=== PATIENT | female | born 1995 | race American Indian/Alaskan Native ===

== ENCOUNTER 2017-08-03 17:22 | Inpatient (IN) | payer MEDICAID ==
[2017-08-03 17:30] VITALS: BMI 35.4
[2017-08-03] MEDS: Lactated Ringer's 1,000 ML IV SCH (17:30)
[2017-08-03 18:46] LABS: BASO # 0.1 K/uL (0.0-0.2); BASO % 0.5 % (0.0-2.0); EOS % 0.2 % (0.0-4.0); HEMATOCRIT 43.7 % (34.0-47.0); LYMPH # 1.8 K/uL (1.0-4.3); LYMPH % 15.6 % (20.0-40.0); MEAN CELL VOLUME 86.7 fl (81.0-99.0); MEAN CORPUSCULAR HEMOGLOBIN 28.1 pg (27.0-31.0); MEAN CORPUSCULAR HGB CONC 32.4 g/dL (33.0-37.0); MEAN PLATELET VOLUME 11.4 fl (7.2-11.7); MONO # 0.4 K/uL (0.0-0.8); MONO % 3.7 % (0.0-10.0); NRBC % 0.2 % (0.0-0.0); RED CELL DISTRIBUTION WIDTH 14.8 % (11.5-14.5); WHITE BLOOD COUNT 11.3 K/uL (4.8-10.8)
[2017-08-03] MEDS ORDERED: Penicillin G 5 Million Unit Vial IVPB ONE (20:00)
--- NOTE | 2017-08-03 20:24 | US ---
EXAM: US Uterus, Limited EXAM DATE/TIME: 08/03/2017 7:25 PM CLINICAL HISTORY: 22 years old, female; Pain; complicated by abdominal or pelvic pain; Periumbilical; Third trimester; Gestational age or lmp: Lmp 12.09.2016; ; Additional info: Dating and placenta location TECHNIQUE: Real-time ultrasound of the maternal uterus (limited) with image documentation. COMPARISON: No relevant prior studies available. FINDINGS: Single fetus identified, cephalic and position. Calculated sonographic gestational age is 36 weeks, 0 days. Estimated delivery date is 08/31/2017. Estimated weight is 6 pounds, 5 ounces. heart motion visualized, at 133 beats/min. Limited assessment of the anatomy on this exam. No obvious anomalies are detected. Fundal location of the placenta. No evidence of placental abruption. No evidence of placenta previa. PABLITO is 6.4 cm. This is below the 2.5th percentile (6.8 cm) for the calculated gestational age. Cervical length is 3.4 cm (normal greater than 3 cm), measured via the translabial approach. IMPRESSION: 36 week, 0 day intrauterine with heart motion. Decreased PABLITO, 6.4 cm, and cannot rule out oligohydramnios. See above for remaining findings.
[2017-08-04] MEDS ORDERED: Nalbuphine 20 mg/ml Inj (1 ml) IVP ONE (01:40)
[2017-08-04] MEDS: Lactated Ringer's 1,000 ML IV SCH ×10 (03:59→22:51)
[2017-08-04] MEDS ORDERED: Betamethasone Soluspan 30 mg/5mL Inj Susp IM ONE (04:00)
--- NOTE | 2017-08-04 04:18 | OBADHP ---
Datetime: 08/03/2017 17:33 Admit Comment, IP Provider: CC: ctx HPI: 22 yo IUP 34 weeks by LMP 12/08/16 as per pt, transferred from [facility] in EARLY labor, c/o ctx since this morning irregular every 6-10 min. -lof,vb,+fm. PNC: [facility], medical records requested. PObH: PGyn: none PMH: none PSH:none Allergies: NKDA, other: shellfish(anaphylaxis) Meds: pnv SH: -tobacco,etoh, drugs. O VSS GEN: nad CVS: +s1 s2 Lungs: clear to auscultation Abd gravid Cervix: 3/50/-1 monitoring: FHR 130/moderate variability/category 1/15 x 15/no decel Bedside u/s vertex presentation. A/P: 22 yo IUP 34 weeks by LMP 12/08/16 as per pt, transferred from [facility] in activ e labor. Admit to unit. NPO cbc, type and screen,rpr,hiv,rubella Ab,HBsAg, urine culture Monitor labor progress monitoring Discussion about labor, delivery and pain management. US limited [place] 12 mg once 4:00 am( 1st dose given at 4:00pm today) Penicillin 2.5 millions units q4 No tocolytics, discussed with Dr Nelly Hayes PGY 1 OB Hospitalist note: This pt was seen and examined by me. Agree with above note. SANDEEP major I spoek wtih Dr Berg about transfer. Steroid and antibiotic given. Dr Villegas was con sulted and agreed with management. If labor progresses then will deliver. Level [address] Oumar ya notified [facility] was called to obtain records. Spoke with Dr Nori Stern. Unable to obtain reports until saturday during business hours Pelvic Type - PN: Adequate Extremities - PN: Normal Abdomen - PN: Normal Back - PN: Normal Breast - PN: Not Done Lungs - PN: Normal Heart - PN: Normal Thyroid - PN: Normal Neurologic - PN: Normal HEENT - PN: Normal General - PN: Normal Presentation-Admit: Vertex FHR - Baseline A Provider: 130 Membranes, Provider: Intact Contraction Comments Provider: occ Comments, ACOG Physical Exam: ROS: General: no weakness; no fatigue HEENT: no THIBODEAUX; no visual dist CV: no palpitations; no no CP GI: no N/V no diarhea : no F/U/D MS: No joint pain Pool Provider: Negative Vital Signs Provider: Reviewed IP Chief Complaint: Uterine contractions NICHD Variability Prov Fetus A: Moderate 6-25bpm NICHD Accel Fetus A IP Provider: 15X15 FHR Category Provider Fetus A: Category I NICHD Decel Fetus A IP Provider: None Dilatation, Provider: 3 Effacement, Provider: 80 Station, Provider: -2 Genitourinary Exam: Normal DTRs - PN: Normal EGA AdmitDate IP: 34.0 IP Adm Impression: , intrauterine ; Intact Membranes IP Admit Plan: Admit to unit; Initiate labor protocol
[2017-08-04] MEDS ORDERED: Lidocaine 1% Inj (20ml) ONE (05:25)
[2017-08-04] MEDS ORDERED: Fentanyl/Bupivacaine HCl 250 ML EPI ONE (06:22)
[2017-08-04] MEDS ORDERED: Bupivacaine HCl 0.25% PF (10 ml) Inj ONE (06:23)
[2017-08-04] MEDS ORDERED: Sodium Chloride 0.9% 1,000 ML IV SCH (07:45)
--- NOTE | 2017-08-04 08:06 | OBPN ---
Datetime: 08/04/2017 07:30 IP Progress Impression: Normal progression of labor; Reassuring heart rate; Rupture of membran es IP Informed Consent Obtain: Vaginal Delivery; Risks, Benefits and Alternatives Discussed IP Procedures: Intrauterine Pressure Catheter; Amnio Infusion IP Progress Plan: Continue present management; Augmentation Pool Provider: Positive Membranes, Provider: Ruptured Amniotic Fluid Color, Provider: Clear FHR - Baseline A Provider: 150 Presentation-Admit: Vertex IP Progress Note Comment: Last night, she had CTX pain and was given IV Nubain. She felt good after wards and was able to rest. She had SROM at 4:30am. She had increasing CTX pain and rec'd epidural this morning. She feels better A: IUp at 34w SROM in labor one prolonged variable decel noted - will given amnioinfusion/IUPC PLAN: with FHR tracing re-assuring will startPitocin augmentation. Level 2 and Rib Builder service notified NICHD Accel Fetus A IP Provider: [id number] FHR Category Provider Fetus A: Category II NICHD Variability Prov Fetus A: Moderate 6-25bpm Dilatation, Provider: 5 Effacement, Provider: 90 Station, Provider: -1 NICHD Decel Fetus A IP Provider: Prolonged Datetime: 08/03/2017 17:33 Contraction Comments Provider: occ Vital Signs Provider: Reviewed
[2017-08-04] MEDS ORDERED: ceFAZolin 2 GM in Sodium Chloride 0.9% 100 ML IVPB ONE (14:55)
[2017-08-04] MEDS ORDERED: Lidocaine 2% PF (10 ml) Amp ONE (15:01)
--- NOTE | 2017-08-04 15:04 | OBPN ---
Datetime: 08/04/2017 14:59 IP Progress Impression: Arrest of dilatation/descent; Reassuring heart rate IP Informed Consent Obtain: Section Delivery; Risks, Benefits and Alternatives Discussed IP Progress Plan: Deliver- Section Contraction Comments Provider: q2-3min FHR - Baseline A Provider: 120s-130s IP Progress Note Comment: Pt fully dilated for >3hours with no progress. Pt states that she 'cannot push anymore.' Discussed options with patient and patient opting for C/S delivery. Discussed the R/ B/A of surgery with patient and all patient questions answered. Pt consented for C/S due to maternal exhaustion and arrest of descent. Anesthesia notified. Vital Signs Provider: Reviewed; Within Normal Limits NICHD Accel Fetus A IP Provider: 15X15 FHR Category Provider Fetus A: Category I NICHD Variability Prov Fetus A: Moderate 6-25bpm Dilatation, Provider: 10 Effacement, Provider: 100 Station, Provider: 0 NICHD Decel Fetus A IP Provider: None
[2017-08-04] MEDS ORDERED: Morphine 5 mg/10 ml preservative-free Inj(Duramorph) ONE (15:28)
[2017-08-04] MEDS ORDERED: Oxycodone/Acetaminophen 5/325 mg Tab PO PRN ×4 (16:07→18:07)
[2017-08-04] MEDS ORDERED: DiphenhydrAMINE 50 mg/ml Inj IVP PRN ×2 (16:30→18:07)
[2017-08-04] MEDS ORDERED: Influenza Vaccine 18yr & older 0.5 ML/45 MCG SYR IM ONE (17:17)
--- NOTE | 2017-08-04 21:18 | OBDS ---
DELIVERY PERSONNEL Delivery Doctor: Kadi Tobin MD Scrub Nurse: Kassi Macias OBT Milk Bottler: Marielena Perez RN Anesthesiologist: Zana Cordova MD Resident: Dr. Brody MATERNAL INFORMATION Delivery Anesthesia: Epidural Medications in Delivery: Pitocin 30 units Estimated Blood Loss (ml): 1000 Placenta Cultured: Yes Maternal Complications: None Provider Comments: Primary low flap transverse section. Viable infant with Apgars of 5 and 8 at one and 5 minutes respectively. Normal uterus, normal tube s and ovaries bilaterally. Estimated blood loss 1000 mL Fluids 1100 mL lactated Ringer's Urine output 300 mL of clear urine No complications Patient tolerated procedure well LABOR SUMMARY EDC: 09/14/2017 00:00 No. Babies in Womb: 0 Attempted: No Labor Anesthesia: Epidural LABOR INFORMATION Reason for Induction: Not Applicable Complete Dilatation: 08/04/2017 11:25 Oxytocin: Augmentation Group B Beta Strep: Not Done Antibiotics # of Doses: 5 Antibiotics Time of Last Dose: 1200 Steroids Given: Full Course; < 24 Hours before Delivery MEMBRANES Membranes Rupture Method: Spontaneous Rupture of Membranes: 08/04/2017 04:35 Length of Rupture (hrs): 10.90 Amniotic Fluid Color: Clear Amniotic Fluid Amount: Large Amniotic Fluid Odor: None STAGES OF LABOR Stage 2 hrs: 4 Stage 2 min: 4 Stage 3 hrs: 0 Stage 3 min: 1 CSECTION DELIVERY Primary Indication: Other Other Primary Indication: maternal exhaustion Secondary Indication: Failure of Descent CSection Urgency: Elective CSection Incidence: Primary Labor: Labor Elective: Elective CSection Incision: Lower Uterine Transverse BABY A INFORMATION Infant Delivery Date/Time: 08/04/2017 15:29 Method of Delivery: Born in Route : No : N/A Forceps: N/A Vacuum Extraction: N/A Shoulder Dystocia : No SHOULDER DYSTOCIA BABY A Delivery Date/Time: 08/04/2017 15:29 PRESENTATION/POSITION BABY A Presentation: Cephalic Cephalic Presentation: Vertex Breech Presentation: N/A PLACENTA INFORMATION BABY A Placenta Delivery Time : 08/04/2017 15:30 Placenta Method of Delivery: Spontaneous Placenta Status: Delivered SCORES BABY A Heart Rate 1 min: Slow, Below 100 bpm Resp Effort 1 min: Slow, Irregular Reflex Irritability 1 min: Grimace Muscle Tone 1 min: Some Flexion of Extremities Color 1 min: Body [place], Extremities Blue SCORE 1 MIN: 5 Heart Rate 5 min: >100 bpm Resp Effort 5 min: Good Cry Reflex Irritability 5 min: Cough or Sneeze or Pulls Away Muscle Tone 5 min: Some Flexion of Extremities Color 5 min: Body [place], Extremities Blue SCORE 5 MIN: 8 INFORMATION BABY A Gestational Age at Delivery: 34.0 Gestational Status: Outcome : Liveborn Infant Condition : Stable Infant Sex: Male IDENTIFICATION/MEDS BABY A ID Band Number: [id number] ID Band Location: Left Leg; Left Arm WEIGHT/LENGTH BABY A Birthweight (gms): 2925 Infant Weight (lb): 6 Infant Weight (oz): 7 CORD INFORMATION BABY A No. Cord Vessels: 3 Nuchal Cord : N/A Cord pH Baby Arterial: 6.95 Cord Blood Taken: N/A Infant Suction: Mouth; Nose ASSESSMENT BABY A Infant Complications: Multiple Variable Decels; Oligohydramnios Physical Findings at Delivery: Within Normal Limits Physical Findings Other: Dr. Lewis present at delivery, MD states baby is term. Respirations: Appears Normal High Risk Case Manager/ALS Called : Yes Care By: Trish Winters/ Jun Transferred To: NICU
[2017-08-05 06:58] LABS: HEMATOCRIT 36.4 % (34.0-47.0); MEAN CORPUSCULAR HEMOGLOBIN 28.7 pg (27.0-31.0); RED CELL DISTRIBUTION WIDTH 14.5 % (11.5-14.5); WHITE BLOOD COUNT 21.7 K/uL (4.8-10.8)
--- NOTE | 2017-08-05 20:54 | OBPPN ---
Datetime: 08/05/2017 06:41 PP Pain Prov: Within normal limits PP Nausea Prov: Denies PP Flatus Prov: No PP BM Prov: No PP Breasts Prov: Not Done PP Heart Prov: Normal PP Lungs Prov: Normal PP Abdomen/Uterus Prov: Normal PP Lochia Prov: Normal PP Vulva/Perineum Prov: Not Done PP CVA Tenderness Prov: Normal PP Extremities Prov: Normal PP C/S Incision Prov: Not Applicable PP Progress Prov: Abnormal PP Comments Phys Exam Prov: Dressing to be removed at 15:00; Pt educated about colostrum and benefits of breastmilk/feeding; She will consider PP Impression Prov: Normal progression PP Plan Prov: Continue present management PP Progress Note Prov: S: 22 yo s/p on 08/04/17. Pt. is seen and examined at bedside this AM. No overnight events. Pt reports mild abdominal pain, but well controlled with pain meds. D/c fuller today, dressing to be removed at 15:00. No nausea, advised to advance diet as tolerated. Bottl e feeding, (educated patient about the benefits of colostrum and breast milk; she will consider for f uture). Lochia is similar to menses volume. No Bowel movement or passing gas per rectum. Denies fever /chills, diarrhea, nausea/vomiting, chest pain, dyspnea, and dizziness. O: VS: stable GEN: NAD Cardio: S1S2, no M/G/R Resp: clear breath sounds b/l Abdomen: BS+, tenderness to palpation. Incision scar to be examined at dressing removal at 15:00. Uterus is firm and at the level of the umbilicus. EXT: No edema, calves nontender NEURO/PSYCHI: AAOx3, no grossly focal deficit, preserved affect and mood. Assessment/Plan: 22 yo s/p on 08/04/17. Pt remains afebrile, tolerating pain with medication, doing well on POD#1. OOB with caution SCDs for DVT prophylaxis, encouraged ambulating Percocet 5/325mg, and Motrin 600mg for pain. Colace 100mg PO BID/Senokot 17.2 mg for constipation Encourage and ambulating f/u CBC post op, pending Tdap before d/c Anticipated d/c to home, 08/07/17. --- Romero Eaton, PGY-1 OBH addendum: Patient seen and examined by me. Agree with above assessment and plan. Patient to shower today. Informed consent obtained for circumcision however circumcision deferred to urologist 2ndary to de viation of penoscrotal median raphe from midline. IP PP Procedures: None Vital Signs Provider PP: Reviewed; Within Normal Limits
--- NOTE | 2017-08-06 20:35 | OBPPN ---
Datetime: 08/06/2017 05:36 PP Pain Prov: Within normal limits PP Nausea Prov: Denies PP Flatus Prov: Yes PP BM Prov: No PP Breasts Prov: Not Done PP Heart Prov: Normal PP Lungs Prov: Normal PP Abdomen/Uterus Prov: Normal PP Lochia Prov: Normal PP Vulva/Perineum Prov: Not Done PP CVA Tenderness Prov: Not Done PP Extremities Prov: Normal PP C/S Incision Prov: Normal PP Progress Prov: Not Applicable PP Impression Prov: Normal progression PP Plan Prov: Continue present management PP Progress Note Prov: S: 22 yo s/p . Pt. is seen and examined at bedside this am. No overnight events. Pt reports mild abdominal pain but well controlled with med, incision site looks no rmal. Advised to advance diet as tolerated. Bottle feeding without difficulty. Lochia is similar to m enses volume. No Bowel movement, but passing gas per rectum. Denies fever/chills, diarrhea, nausea/vo miting, chest pain, dyspnea, and dizziness. O: VS: stable GEN: NAD Cardio: s1s2, no M/G/R Resp: clear breath sounds b/l Abdomen: BS+, mild tenderness to palpation. Incision scar noted, well healing no exudate seen, dry and intact. Uterus is firm and at the level of the umbilicus. Ext: No edema, calves no tender Neuro/psychi: AAOx3, cn II-XI intact, normal affect and mood. Assessment/Plan: 22 yo s/p doing well on POD 2. OOB with caution. SCDs for DVT prophylaxis, encouraged ambulating. Encourage . Percocet 5/325mg, and Ibuprofen 600mg for pain. Colace 100mg PO BID for constipation CBC post op, stable 12.0/36.4 Anticipated d/c to 08/07/17 Hayes PGY 1 OB Hospitalist note: This pt was seen and examined by me. Agree with above note. SANDEEP LANDIS PP Procedures: None Vital Signs Provider PP: Reviewed; Within Normal Limits Vital Signs Provider Details PP: Bottle feeding, considering
[2017-08-07 17:01] VITALS: BP 124/67; PULSE 75; RESP 18; TEMP 98; O2SAT 99
--- NOTE | 2017-08-07 17:20 | OBPPN ---
Datetime: 08/07/2017 06:07 PP Pain Prov: Within normal limits PP Nausea Prov: Denies PP Flatus Prov: Yes PP BM Prov: Yes PP Breasts Prov: Not Done PP Heart Prov: Normal PP Lungs Prov: Normal PP Abdomen/Uterus Prov: Normal PP Lochia Prov: Normal PP Vulva/Perineum Prov: Not Done PP CVA Tenderness Prov: Not Done PP Extremities Prov: Normal PP C/S Incision Prov: Normal PP Progress Prov: Not Applicable PP Impression Prov: Normal progression PP Plan Prov: Discharge PP Progress Note Prov: S: 22 yo s/p . Pt. is seen and examined at bedside this am. No overnight events. Pt reports mild abdominal pain but well controlled with med, incision site looks no rmal. Advised to advance diet as tolerated. Bottle feeding without difficulty. Lochia is similar to m enses volume. + BM this morning and passing gas per rectum. Denies fever/chills, diarrhea, nausea/vom iting, chest pain, dyspnea, and dizziness. O:VS: stable GEN: NAD Cardio: s1s2, no M/G/R Resp: clear breath sounds b/l Abdomen: BS+, mild tenderness to palpation. Incision scar noted, well healing no exudate seen, dry and intact. Uterus is firm and at the level of the umbilicus. Ext: No edema, calves no tender Neuro/psychi: AAOx3, cn II-XI intact, normal affect and mood. Assessment/Plan: 22 yo s/p doing well on POD 3. OOB with caution. SCDs for DVT prophylaxis, encouraged ambulating. Encourage . Percocet 5/325mg, and Ibuprofen 600mg for pain. Colace 100mg PO BID for constipation CBC post op, stable 12.0/36.4 Discharge home today. Hayes PGY 1 OB H addendum: Patient seen and examined by me . Agree with above assessment and plan. Wound care and hygiene discussed with patient. and postop precautions discussed with jenny irvin. IP PP Procedures: None Vital Signs Provider PP: Reviewed
--- NOTE | 2017-08-07 17:22 | OBDCSUM ---
Datetime: 08/07/2017 06:10 Discharged to, Provider: Home Follow up at, Provider: PMD Disch Instr Activity: March Shower Disch Instr Diet: Regular Discharge Instructions, Provider: Routine instructions given Discharge Diagnosis, Provider: Delivery Discharge Time: 08/07/2017 12:00 Follow up in weeks, Provider: 1 week and 6 weeks Disch Referrals: None Discharge Instruct Comment, Prov: postop and pp instructions Contraception discussed, Prov: Yes Disch Activity Restrictions: No exercising; No lifting; No driving; No sexual activity; Nothing in v agina - Outlook, tampons, douche Discharge Comment, Provider: DOA: 08/03/2017 EGA: 34.0 Diagnosis: due failure of descent, delivery PRisk factors: none Summary of : L_D summary: DOL: 08/04/17 at 15:29 NB: M : 5/8 Weight: 2925g PP summary: No serious complications during PP. Lochia= menses, mild pain, controlled with medications. Rubella immune, blood type: A+ CBC pp: 12.0/36.4 Discharge Date: 08/07/17 at 10:00AM Discharge Instructions: -encourage -percocet/Ibuprofen for pain PRN -Colace for constipation -Ambulate as tolerated -f/u NB visit and PP visit. Abigail PGY 1 OB H addendum: Discussed with patient Percocet and possibility for addiction advised to take sparingly. Contraception after Delivery: Undecided
== END 2017-08-07 11:50 | disposition home or self-care (01) | DRG 651 ==
LOC: H.EROB2 17:22 → H.L&D 17:30 → H.OB/GYN 08-04 17:48
PROVIDERS: ADMIT Obstetrics & Gynecology; ATTEND Obstetrics & Gynecology
PROC: 4A1HXCZ Monitoring of Products of Conception, Cardiac Rate, External Approach (ICD-10-PCS; 2017-08-03)
PROC: 10D00Z1 Extraction of Products of Conception, Low, Open Approach (ICD-10-PCS; principal; 2017-08-04)
DX: O60.14X0 Preterm labor third trimester with preterm delivery third trimester, not applicable or unspecified (principal); O41.03X0 Oligohydramnios, third trimester, not applicable or unspecified; Z37.0 Single live birth; O32.4XX0 Maternal care for high head at term, not applicable or unspecified; O62.0 Primary inadequate contractions; O62.1 Secondary uterine inertia; O75.81 Maternal exhaustion complicating labor and delivery; O76 Abnormality in fetal heart rate and rhythm complicating labor and delivery; Z3A.34 34 weeks gestation of pregnancy